=== PATIENT | female | born 1980 | race American Indian/Alaskan Native ===

== ENCOUNTER 2018-01-01 21:57 | Emergency (ER) | payer MEDICAID ==
[2018-01-01 22:03] VITALS: BMI 28.3
[2018-01-01 22:07] VITALS: TEMP 98.5
[2018-01-01] MEDS ORDERED: Sodium Chloride 0.9% 1,000 ML IV SCH (22:15)
--- NOTE | 2018-01-01 22:15 | ED PDOC ---
Arrival/HPI - General Chief Complaint: Headache Time Seen by Provider: 01/01/18 21:59 Historian: Patient - History of Present Illness Narrative History of Present Illness (Text): you were treated in the ED today for hx of Lupus and having drank alcohol and feeling gradual onset headache/migraine flare-up but otherwise without any head injury/neck pain/loss of consciousness/nausea/vomiting/dizziness/difficulty breathing/chest pain/abdomen pain/numbness/tingling/loss of limb function/pain with urination/thoughts to harm yourself or others or hallucinations. 01/01/18 22:12 Symptom Course: Improving Quality: Aching Severity Level: 1 Activities at Onset: Rest Context: Sitting Past Medical History - Provider Review Nursing Documentation Reviewed: Yes - Travel History Have you recently traveled outside [place] w/in the past 3 mons?: No - Infectious Disease Hx of Infectious Diseases: None - Cardiac Hx Hypertension: Yes - Neurological Hx Migraine: Yes - Endocrine/Metabolic Hx Systemic Lupus Erythematosus: Yes - Psychiatric Hx Substance Use: No Family/Social History - Physician Review Nursing Documentation Reviewed: Yes Family/Social History: No Known Family HX Smoking Status: Smoker Currrent Status Unknown Hx Alcohol Use: Yes Frequency of alcohol use: Socially Hx Substance Use: No Allergies/Home Meds Allergies/Adverse Reactions: Allergies No Known Allergies Allergy (Verified 01/01/18 22:03) Home Medications: Home Meds Medication Instructions Recorded Confirmed Unobtainable 01/01/18 01/01/18 Review of Systems - Physician Review All systems were reviewed & negative as marked: Yes - Review of Systems Constitutional: Normal Eyes: Normal ENT: Normal Respiratory: Normal Cardiovascular: Normal Gastrointestinal: Normal Genitourinary Female: Normal Musculoskeletal: Normal Skin: Normal Neurological: Headache Endocrine: Normal Hemo/Lymphatic: Normal Psychiatric: Normal Physical Exam Vital Signs Reviewed: Yes Vital Signs Temp Pulse Resp BP Pulse Ox 01/02/18 00:18 56 L 20 129/92 H 99 01/01/18 22:04 98.5 F 64 18 149/104 H 100 Temperature: Afebrile Blood Pressure: Hypertensive Pulse: Regular Respiratory Rate: Normal Appearance: Positive for: Well-Appearing, Non-Toxic, Comfortable Pain Distress: None Mental Status: Positive for: Alert and Oriented X 3 - Systems Exam Head: Present: Atraumatic Pupils: Present: PERRL Extroacular Muscles: Present: EOMI Conjunctiva: Present: Normal Ears: Present: Normal Mouth: Present: Moist Mucous Membranes Pharnyx: Present: Normal Nose (External): Present: Atraumatic Nose (Internal): Present: Normal Inspection Neck: Present: Normal Range of Motion, Other (no c-t-l spinal or paraspinal tenderness) Respiratory/Chest: Present: Clear to Auscultation, Good Air Exchange Cardiovascular: Present: Regular Rate and Rhythm Abdomen: No: Tenderness, Distention, Normal Bowel Sounds, Peritoneal Signs, Rebound, Guarding, McBurney's Point Tender, Rovsing's Sign Present, Hernias, Feeding Tubes, Ostomy Tubes, Mass/Organomegaly, Scars, Other Back: Present: Normal Inspection Upper Extremity: Present: Normal Inspection Lower Extremity: Present: Normal Inspection Neurological: Present: GCS=15, CN II-XII Intact, Speech Normal, Motor Func Grossly Intact Skin: Present: Warm, Normal Color Psychiatric: Present: Alert, Oriented x 3, Normal Insight, Normal Concentration Medical Decision Making ED Course and Treatment: ct head FINDINGS: Brain: No intracranial hemorrhage. No mass. No definite edema. Ventricles: No hydrocephalus. Bones/joints: No acute fracture. Soft tissues: Unremarkable. Sinuses: No acute sinusitis. Mastoid air cells: No mastoid effusion. Orbits: Unremarkable as visualized. IMPRESSION: 1. No definite acute intracranial abnormality. you were treated in the ED today for hx of Lupus and having drank alcohol and feeling gradual onset headache/migraine flare-up but otherwise without any head injury/neck pain/loss of consciousness/nausea/vomiting/dizziness/difficulty breathing/chest pain/abdomen pain/numbness/tingling/loss of limb function/pain with urination/thoughts to harm yourself or others or hallucinations. You were otherwise breathing easily, smiling and talking easily, good strength/sensation , clear lungs, no abdomen tenderness, no spinal tenderness, no fever temp 98.5, stable heart rate 64, stable breathing rate 18, excellent oxygen level 100% room air, elevated blood pressure 149/104 and repeat 129/92 which we recommend repeat in 2-3 days primary care office to determine further treatment, you have blood tests no infection count 5.8, stable blood level hemoglobin 9/platelets 234, stable chemistry, urine test no acute sign of infeciton, urine test negative, test negative less than 2.39, alcohol level 153, heart blood test less than 0.01 negative, radiology ct head No definite acute intracranial abnormality., ECG sinus bradycardia, saline, observation done in the ED with improvement, re-evaluated with good strength/sensation/alert/ oriented, walking easily, had a long discussion with you and mom and you both wanted to go home, counselled to stop drinking alcohol and thus discharged home with mom. 1. Recommend follow-up primary care 2 days to review symptoms, referral to detoxification clinic to stop drinking alcohol, referral to neurology clinic to review your symptoms to ensure further care. 2. If any worsening pain, fever, chills, nausea, vomiting, difficulty breathing, numbness , loss of limb function, pain with urination or any medical condition then return to the ED. 01/02/18 01:41 01/02/18 01:53 Reassessment Condition: Re-examined, Improved - Lab Interpretations Lab Results: 01/01/18 22:25 01/01/18 22:25 Lab Results 01/02/18 00:40: Urine Color Yellow, Urine Appearance Clear, Urine pH 7.0, Ur Specific [place] 1.010, Urine Protein Negative, Urine Glucose (UA) Negative, Urine Ketones Negative, Urine Blood Negative, Urine Nitrate Negative, Urine Bilirubin Negative, Urine Urobilinogen 0.2, Ur Leukocyte Esterase Negative 01/01/18 22:25: Troponin I < 0.01 01/01/18 22:25: Beta HCG, Quant < 2.39, Alcohol, Quantitative 153 H 01/01/18 22:25: Sodium 149 H, Potassium 3.8, Chloride 112 H, Carbon Dioxide 22, Anion Gap 19, BUN 9, Creatinine 0.6 L, Est GFR ( Amer) > 60, Est GFR (Non -Af Amer) > 60, Random Glucose 90, Calcium 8.7, Total Bilirubin < 0.1 L, AST 25 , ALT 25, Alkaline Phosphatase 35 L, Total Protein 6.9, Albumin 4.2, Globulin 2.7, Albumin/Globulin Ratio 1.6 01/01/18 22:25: PT 12.6 H, INR 1.10 H, APTT 28.4 01/01/18 22:25: WBC 5.8, RBC 4.19, Hgb 9.0 L, Hct 28.9 L, MCV 69.0 L, MCH 21.5 L , MCHC 31.1, RDW 18.7 H, Plt Count 234, MPV 10.6, Gran % 44.2 L, Lymph % (Auto) 49.5 H, [place] % (Auto) 4.8, Eos % (Auto) 1.0 L, Baso % (Auto) 0.5, Gran # 2.57, Lymph # (Auto) 2.9, [place] # (Auto) 0.3, Eos # (Auto) 0.1, Baso # (Auto) 0.03 I have reviewed the lab results: Yes - RAD Interpretation Radiology Orders: 01/01/18 23:20 HEAD W/O CONTRAST [CT] Stat Paving Machine Operator: Radiologist - EKG Interpretation Interpreted by ED Physician: Yes (sinus bradycardia, flipped t waves avr, avl, v1, v2, v3.) Type: 12 lead EKG - Medication Orders Current Medication Orders: Sodium Chloride (Sodium Chloride 0.9%) 1,000 mls @ 100 mls/hr IV .Q10H CAROLYN Last Admin: 01/01/18 22:20 Dose: 100 mls/hr eMAR Start Stop Document 01/01/18 22:20 (Rec: 01/01/18 23:00 [id number] Intravenous Solution Start Date 01/01/18 Start Time 22:20 Discontinued Medications Acetaminophen (Tylenol 325mg Tab) 975 mg PO STAT STA Stop: 01/01/18 22:31 Last Admin: 01/01/18 22:58 Dose: 975 mg MAR Pain/Vitals Document 01/01/18 22:58 (Rec: 01/01/18 23:00 [id number] Pain Reassessment Is This A Pain ReAssessment? Yes Location Pain Location Body Rubber Stamp Maker Ondansetron HCl (Zofran Inj) 4 mg IVP STAT STA Stop: 01/01/18 22:31 Last Admin: 01/01/18 23:00 Dose: 4 mg IVP Administration Document 01/01/18 23:00 (Rec: 01/01/18 23:00 [id number] Charges for Administration # of IVP Administrations 1 Disposition/Present on Arrival - Present on Arrival Any Indicators Present on Arrival: No History of DVT/PE: No History of Uncontrolled Diabetes: No Urinary Catheter: No History of Decub. Ulcer: No History Surgical Site Infection Following: None - Disposition Have Diagnosis and Disposition been Completed?: Yes Diagnosis: Alcohol abuse, Headache Disposition: HOME/ ROUTINE Disposition Time: :42 Patient Plan: Discharge Patient Problems: Current Active Problems Problem Status Onset Alcohol abuse Acute Headache Acute Condition: IMPROVED Discharge Instructions (ExitCare): Headache, Adult, Effects of Alcohol on Your Health Additional Instructions: you were treated in the ED today for hx of Lupus and having drank alcohol and feeling gradual onset headache/migraine flare-up but otherwise without any head injury/neck pain/loss of consciousness/nausea/vomiting/dizziness/difficulty breathing/chest pain/abdomen pain/numbness/tingling/loss of limb function/pain with urination/thoughts to harm yourself or others or hallucinations. You were otherwise breathing easily, smiling and talking easily, good strength/sensation , clear lungs, no abdomen tenderness, no spinal tenderness, no fever temp 98.5, stable heart rate 64, stable breathing rate 18, excellent oxygen level 100% room air, elevated blood pressure 149/104 and repeat 129/92 which we recommend repeat in 2-3 days primary care office to determine further treatment, you have blood tests no infection count 5.8, stable blood level hemoglobin 9/platelets 234, stable chemistry, urine test no acute sign of infeciton, urine test negative, test negative less than 2.39, alcohol level 153, heart blood test less than 0.01 negative, radiology ct head No definite acute intracranial abnormality., ECG sinus bradycardia, saline, observation done in the ED with improvement, re-evaluated with good strength/sensation/alert/ oriented, walking easily, had a long discussion with you and mom and you both wanted to go home, counselled to stop drinking alcohol and thus discharged home with mom. 1. Recommend follow-up primary care 2 days to review symptoms, referral to detoxification clinic to stop drinking alcohol, referral to neurology clinic to review your symptoms to ensure further care. 2. If any worsening pain, fever, chills, nausea, vomiting, difficulty breathing, numbness , loss of limb function, pain with urination or any medical condition then return to the ED. Referrals: NimbusBasejackie Rhodes, [Primary Care Provider] - Follow up with primary Forms: [employer]pto ([place])
[2018-01-01 22:37] LABS: BASO # 0.03 K/mm3 (0.0-2.0); BASO % 0.5 % (0.0-3.0); EOS # 0.1 (0.0-0.7); GRAN # 2.57 (1.4-6.5); GRAN % 44.2 % (50.0-68.0); LYMPH # 2.9 (1.2-3.4); LYMPH % 49.5 % (22.0-35.0); MEAN CORPUSCULAR HEMOGLOBIN 21.5 pg (25.0-35.0); MEAN CORPUSCULAR HGB CONC 31.1 g/dl (31.0-37.0); MEAN PLATELET VOLUME 10.6 fl (7.0-11.0); MONO # 0.3 (0.1-0.6); MONO % 4.8 % (1.0-6.0); RBC 4.19 10^6/uL (3.5-6.1); RED CELL DISTRIBUTION WIDTH 18.7 % (11.5-14.5); WHITE BLOOD COUNT 5.8 10^3/ul (4.5-11.0)
[2018-01-01 22:45] LABS: INR 1.1 (0.93-1.08); PARTIAL THROMBOPLASTIN TIME 28.4 Seconds (25.1-36.5); PROTHROMBIN TIME 12.6 SECONDS (9.4-12.5)
[2018-01-01 22:47] LABS: ALB/GLOB RATIO 1.6 (1.1-1.8); ALBUMIN 4.2 g/dL (3.0-4.8); ALT/SGPT 25 U/L (7-56); AST/SGOT 25 U/L (14-36); BLOOD UREA NITROGEN 9 mg/dL (7-21); CALCIUM 8.7 mg/dL (8.4-10.5); GFR AFRICAN-AMERICAN > 60; GFR NON-AFRICAN AMERICAN > 60
--- NOTE | 2018-01-02 00:51 | CT ---
EXAM: CT Head Without Intravenous Contrast CLINICAL HISTORY: 37 years old, female; Pain; Headache; Additional info: 37yof, lupus, headach, tingling TECHNIQUE: Axial computed tomography images of the head/brain without intravenous contrast. All CT scans at this facility use one or more dose reduction techniques, viz.: automated exposure control; ma/kV adjustment per patient size (including targeted exams where dose is matched to indication; i.e. head); or iterative reconstruction technique. Coronal and sagittal reformatted images were created and reviewed. COMPARISON: No relevant prior studies available. FINDINGS: Brain: No intracranial hemorrhage. No mass. No definite edema. Ventricles: No hydrocephalus. Bones/joints: No acute fracture. Soft tissues: Unremarkable. Sinuses: No acute sinusitis. Mastoid air cells: No mastoid effusion. Orbits: Unremarkable as visualized. IMPRESSION: 1. No definite acute intracranial abnormality.
[2018-01-02 01:17] LABS: URINE BILIRUBIN NEGATIVE (NEGATIVE); URINE BLOOD NEGATIVE (NEGATIVE); URINE GLUCOSE (UA) NEGATIVE (NEGATIVE); URINE LEUKOCYTE ESTERASE NEGATIVE Leu/uL (NEGATIVE); URINE PROTEIN NEGATIVE mg/dL (<30 mg/dL); URINE UROBILINOGEN 0.2 E.U./dL (<1 E.U./dL)
[2018-01-02 01:23] LABS: URINE APPEARANCE CLEAR (CLEAR); URINE COLOR YELLOW (YELLOW)
[2018-01-02 01:59] VITALS: BP 131/84; RESP 18; O2SAT 100
[2018-01-02 03:15] VITALS: PULSE 94
--- NOTE | 2018-01-02 08:51 | CARD ---
APPROVED REPORT EKG Measurement Heart [id number] <Conclusion> Sinus bradycardia RVCD Minimal voltage criteria for LVH, may be normal variant
== END 2018-01-02 01:58 | disposition home or self-care (01) ==
LOC: ED 21:57
DX: R51 Headache (principal); F10.10 Alcohol abuse, uncomplicated; I10 Essential (primary) hypertension; M32.9 Systemic lupus erythematosus, unspecified
CPT/HCPCS: 70450; 80053; 80320; 81003; 84484; 84702; 85025; 85610; 85730; 87086; 93005; 96374; 99285; J2405; J7040

== ENCOUNTER 2018-06-21 17:18 | Inpatient (IN) | payer MEDICAID ==
[2018-06-21 17:35] VITALS: BMI 25.0
--- NOTE | 2018-06-21 17:57 | ED PDOC ---
Arrival/HPI - General Chief Complaint: Weakness/Neurological Deficit Time Seen by Provider: 06/21/18 17:28 Historian: Patient, Parent - History of Present Illness Narrative History of Present Illness (Text): 06/21/18 17:57 Patient is a 37 year old female whose past medical history includes hypertension and lupus, who presents to the Emergency department with her mother complaining of diffuse pain, and difficulty walking. Patient reports that she was admitted to [facility] for approximately 3 days with her current symptoms and eloped earlier today. She reports feeling weak, diffusekly, and eloped to trick or treat with her children, but admits that her symptoms hadn't resolved when she left the hospital. She takes Mesalamine for her Lupus, and Lisinopril for hypertension. Patient noted currently having her menstrual period. She states being allergic to Motrin, and is unable to take Tylenol because it causes abdominal pain. Of note she is unsure if her current symptoms are similar to past lupus flare ups. Patient denies fevers, chills, cough, shortness of breath, chest pain, dyspnea on exertion, abdominal pain, nausea, vomiting, diarrhea, headache, dizziness, or any other complaint. Spoke to the mother, who reports that the patient was supposed to get further neurological testing at [facility], but the patient denied treatment and eloped. Time/Duration: < week Symptom Onset: Sudden Symptom Course: Unchanged Activities at Onset: Light Past Medical History - Provider Review Nursing Documentation Reviewed: Yes - Infectious Disease Hx of Infectious Diseases: None - Cardiac Hx Cardiac Disorders: Yes Hx Hypertension: Yes - Pulmonary Hx Respiratory Disorders: No - Neurological Hx Neurological Disorder: Yes Hx Migraine: Yes - HEENT Hx HEENT Disorder: No - Renal Hx Renal Disorder: No - Endocrine/Metabolic Hx Endocrine Disorders: Yes Hx Systemic Lupus Erythematosus: Yes - Hematological/Oncological Hx Blood Disorders: No - Integumentary Hx Dermatological Disorder: No - Musculoskeletal/Rheumatological Hx Musculoskeletal Disorders: No - Gastrointestinal Hx Gastrointestinal Disorders: No - Genitourinary/Gynecological Hx Genitourinary Disorders: No - Psychiatric Hx Psychophysiologic Disorder: No Hx Substance Use: No Family/Social History - Physician Review Nursing Documentation Reviewed: Yes Family/Social History: No Known Family HX Smoking Status: Smoker Currrent Status Unknown Hx Alcohol Use: Yes Hx Substance Use: No Allergies/Home Meds Allergies/Adverse Reactions: Allergies No Known Allergies Allergy (Verified 05/13/18 22:03) Home Medications: Home Meds Medication Instructions Recorded Confirmed Unobtainable 01/01/18 01/01/18 Review of Systems - Physician Review All systems were reviewed & negative as marked: Yes - Review of Systems Constitutional: absent: Fevers, Night Sweats Respiratory: absent: SOB, Cough Cardiovascular: absent: Chest Pain Gastrointestinal: absent: Abdominal Pain, Diarrhea, Nausea, Vomiting Musculoskeletal: Other (diffuse pain) Neurological: absent: Headache, Dizziness Physical Exam Vital Signs Reviewed: Yes Vital Signs Temp Pulse Resp BP Pulse Ox 06/21/18 17:30 98.3 F 55 L 19 143/79 100 Temperature: Afebrile Blood Pressure: Normal Pulse: Bradycardic Respiratory Rate: Normal Appearance: Positive for: Unkept Mental Status: Positive for: Alert and Oriented X 3 Finger Stick Blood Glucose: 92 - Systems Exam Head: Present: Atraumatic, Normocephalic Pupils: Present: PERRL Extroacular Muscles: Present: EOMI Conjunctiva: Present: Normal Mouth: Present: Moist Mucous Membranes Neck: Present: Normal Range of Motion. No: Meningeal Signs, MIDLINE TENDERNESS Respiratory/Chest: Present: Clear to Auscultation, Good Air Exchange. No: Respiratory Distress, Accessory Muscle Use Cardiovascular: Present: Regular Rate and Rhythm, Normal S1, S2. No: Murmurs Abdomen: No: Tenderness, Distention, Peritoneal Signs Back: Present: Normal Inspection. No: CVA Tenderness, Midline Tenderness Upper Extremity: Present: Normal Inspection, Normal ROM, NORMAL PULSES. No: Cyanosis, Edema Lower Extremity: Present: Normal Inspection, NORMAL PULSES, Neurovascularly Intact, Other (No saddle anesthesia). No: Edema, CALF TENDERNESS Neurological: Present: GCS=15, CN II-XII Intact, Speech Normal Skin: Present: Warm, Dry, Normal Color. No: Rashes Psychiatric: Present: Alert, Oriented x 3, Normal Insight, Normal Concentration Medical Decision Making ED Course and Treatment: 06/21/18 17:57 Impression: 37 year old female who is complaining of diffuse pain, generalized weakness, difficulty walking. No saddle anesthesia, enuresis or encoparesis. Pt was supposed to have spinal tap for ?weakness, but was able to ambulate and elope without weakness from . On exam, No meningeal signs and good antigravity 3/5 strength in B/L LE. Differential Diagnosis included but are not limited to: Plan: -- Head Ct without contrast -- EKG -- Labs -- Cardiac enzymes -- Blood work -- Chest X-ray -- Blood culture -- Urinalysis -- IV fluids -- Influenza test -- Reassess and disposition Prior Visits: Notes and results from previous visits were reviewed. Progress Notes: 06/21/18 20:31 +UTI. No CVAT Anemic: pt notes that she has had low blood counts around 8 in the past. No dark or bloody stool. Pt notes her period is improving, and denies any abnl vaginal d/c or rashes or vaginal pain. Pt notes that if needed she would be willing to do tap tomorrow. I endorsed to patient risk of delayed tap- However given no meningeal signs, will defer tap and have neuro see pt. I endorsed to Dr. Ortiz and healthcare or medical who will f/u and accepts admission to hospitalist service - Lab Interpretations I have reviewed the lab results: Yes - EKG Interpretation EKG Interpretation (Text): 06/21/18 18:52 EKG shows sinus bradycardia at 52 BPM with normal intervals and axis. No STEMI. Interpreted by me. Interpreted by ED Physician: Yes Type: 12 lead EKG - Scribe Statement The provider has reviewed the documentation as recorded by the Scribe Saad Langston Provider Scribe Attestation: All medical record entries made by the Scribe were at my direction and personally dictated by me. I have reviewed the chart and agree that the record accurately reflects my personal performance of the history, physical exam, medical decision making, and the department course for this patient. I have also personally directed, reviewed, and agree with the discharge instructions and disposition. Disposition/Present on Arrival - Present on Arrival Any Indicators Present on Arrival: No History of DVT/PE: No History of Uncontrolled Diabetes: No Urinary Catheter: No History of Decub. Ulcer: No History Surgical Site Infection Following: None - Disposition Have Diagnosis and Disposition been Completed?: Yes Diagnosis: UTI (urinary tract infection) Disposition: HOSPITALIZED Disposition Time: 20:37 Patient Problems: Current Active Problems Problem Status Onset UTI (urinary tract infection) Acute Condition: GOOD
[2018-06-21 18:51] LABS: BASO # 0.01 K/mm3 (0.0-2.0); BASO % 0.2 % (0.0-3.0); EOS # 0.1 (0.0-0.7); EOS % 1.1 % (1.5-5.0); GRAN # 2.08 (1.4-6.5); GRAN % 38.8 % (50.0-68.0); HEMOGLOBIN 8.3 g/dL (12.0-16.0); LYMPH % 55.4 % (22.0-35.0); MEAN CELL VOLUME 63.5 fl (80.0-105.0); MEAN CORPUSCULAR HEMOGLOBIN 18.5 pg (25.0-35.0); MEAN CORPUSCULAR HGB CONC 29.1 g/dl (31.0-37.0); MONO # 0.2 (0.1-0.6); MONO % 4.5 % (1.0-6.0); PLATELET COUNT 238 10^3/uL (120.0-450.0); RBC 4.49 10^6/uL (3.5-6.1); RED CELL DISTRIBUTION WIDTH 21.3 % (11.5-14.5); WHITE BLOOD COUNT 5.4 10^3/uL (4.5-11.0)
[2018-06-21] MEDS: Sodium Chloride 0.9% 1,000 ML IV SCH (18:55)
[2018-06-21 19:03] LABS: ALB/GLOB RATIO 1.3 (1.1-1.8); ALBUMIN 3.7 g/dL (3.0-4.8); ALT/SGPT 16 U/L (7-56); AST/SGOT 34 U/L (14-36); BLOOD UREA NITROGEN 9 mg/dL (7-21); CALCIUM 8.3 mg/dL (8.4-10.5); GFR NON-AFRICAN AMERICAN > 60
[2018-06-21 19:20] LABS: TROPONIN I < 0.01 ng/mL
[2018-06-21 19:22] LABS: B-TYPE NATRIURETIC PEPTIDE 98.8 pg/mL (0-450)
[2018-06-21 19:30] LABS: URINE BILIRUBIN NEGATIVE (NEGATIVE); URINE BLOOD LARGE (NEGATIVE); URINE GLUCOSE (UA) NEGATIVE (NEGATIVE); URINE LEUKOCYTE ESTERASE NEGATIVE Leu/uL (NEGATIVE); URINE PROTEIN 30 mg/dL (<30 mg/dL); URINE UROBILINOGEN 0.2 E.U./dL (<1 E.U./dL)
[2018-06-21 19:56] LABS: URINE APPEARANCE SL CLOUDY (CLEAR); URINE COLOR YELLOW (YELLOW)
[2018-06-21 19:58] LABS: URINE BACTERIA MANY (NEG); URINE RBC 20 - 25 /hpf (0-2)
[2018-06-21 20:13] LABS: ERYTHROCYTE SEDIMENTATION RATE 10 mm/hr (0.0-20.0)
[2018-06-21] MEDS ORDERED: Influenza Vaccine 60 mcg/0.5 mL SYR (4YR UP) IM ONE (23:21)
--- NOTE | 2018-06-22 00:17 | CP.PCM.HP ---
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 She reports that she was recently admitted to [facility] with similar complaints however left AMA after being told she would need a LP. She reports her walking is shaky, off balance, and wobbly; she's reporting leg pain, fatigue, body aches. Patient also has complaints of numbness on the bottom of her feet as well as urinary incontinence (urge). Denies any fevers chills, reports constipation last BM 1.5 weeks ago, denies hematochezia/ melena at the time. Patient reports that whenever she has a lupus flair she has nubmness, achiness, and hair loss. When asked about her lupus diagnosis patient reports she was diagnosed 2 yrs ago by her primary care doctor; Dr. Bradley; has never seen a residential care facility manager for lupus. Of note she reported to ED that she was on mesalamine for lupus and lisinopril f or hypertension; when verifying home rx w/ pharmacy she is not on either of medications. Patient also reported to ED that she is allergic to motrin and has abdominal pain w/ tylenol however she reported to nurse on the floor that she's on percocet. Denies any chest pain, shortness of breath, palpitations, abd pain, n/v/d, dizziness, blurry vision. Denies Rash. Remainder 12 system ROS is negative. 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, 4children most recent 2013, Miscarriage 2012- Home Rx As per PHARMACY: Tylenol#3 -Filled 05/21 #20 Augmentin -Filled 05/15 #10 Fioricet #50 / 12 days Tylenol#3 - Quantity 20 March - Oxy, Fioricet, Clarithromycin, Augmentin Present on Admission - Present on Admission Any Indicators Present on Admission: No Review of Systems - Review of Systems All systems: reviewed and no additional remarkable complaints except Review of Systems: as per HPI Past Patient History - Infectious Disease Hx of Infectious Diseases: None - Past Social History Smoking Status: Light Smoker < 10 Cigarettes Daily - CARDIAC Hx Hypertension: Yes - PULMONARY Hx Respiratory Disorders: No - NEUROLOGICAL Hx Migraine: Yes - HEENT Hx HEENT Problems: No - RENAL Hx Chronic Kidney Disease: No - ENDOCRINE/METABOLIC Hx Systemic Lupus Erythematosus: Yes - HEMATOLOGICAL/ONCOLOGICAL Hx Blood Disorders: No - INTEGUMENTARY Hx Dermatological Problems: No - MUSCULOSKELETAL/RHEUMATOLOGICAL Hx Musculoskeletal Disorders: No Hx Falls: No - GASTROINTESTINAL Hx Gastrointestinal Disorders: No - GENITOURINARY/GYNECOLOGICAL Hx Genitourinary Disorders: No - PSYCHIATRIC Hx Psychophysiologic Disorder: No - SURGICAL HISTORY Other/Comment: X1 Meds Allergies/Adverse Reactions: Allergies Allergy/AdvReac Type Severity Reaction Status Date / Time No Known Allergies Allergy Verified 01/01/18 22:03 Physical Exam - Constitutional Appears: Non-toxic - Head Exam Head Exam: ATRAUMATIC, NORMOCEPHALIC - Eye Exam Eye Exam: EOMI, Normal appearance, PERRL. absent: Scleral icterus - ENT Exam ENT Exam: Mucous Membranes Moist - Respiratory Exam Respiratory Exam: Clear to Auscultation Bilateral, NORMAL BREATHING PATTERN - Cardiovascular Exam Cardiovascular Exam: Bradycardia, +S1, +S2 - GI/Abdominal Exam GI & Abdominal Exam: Normal Bowel Sounds, Soft, Tenderness (RLQ/RUQ; Not apparent on distraction; no guarding; no rebound; McBurney's tenderpoint negative ) - Back Exam Back exam: absent: CVA tenderness (L), CVA tenderness (R) - Neurological Exam Neurological exam: CN II-XII Intact, Oriented x3 Additional comments: 5/5 Gross strength in UE and LE BL BL LE Sensatory exam equivocal ; - Psychiatric Exam Psychiatric exam: Normal Affect, Normal Mood - Skin Skin Exam: Dry, Intact, Warm Additional comments: No rashes noted on abdomen, back, and face Results - Vital Signs Recent Vital Signs: Last Vital Signs Temp 98 F 06/21/18 22:50 Pulse 59 L 06/21/18 22:50 Resp 18 06/21/18 23:04 BP 124/76 06/21/18 22:50 Pulse Ox 100 06/21/18 22:50 - Labs Result Diagrams: 06/21/18 18:15 06/21/18 18:15 Labs: Laboratory Results - last 24 hr 06/21/18 06/21/18 06/21/18 18:15 18:15 18:15 WBC 5.4 RBC 4.49 Hgb 8.3 L Hct 28.5 L MCV 63.5 L D MCH 18.5 L MCHC 29.1 L RDW 21.3 H Plt Count 238 Gran % 38.8 L Lymph % (Auto) 55.4 H [place] % (Auto) 4.5 Eos % (Auto) 1.1 L Baso % (Auto) 0.2 Gran # 2.08 Lymph # (Auto) 3.0 [place] # (Auto) 0.2 Eos # (Auto) 0.1 Baso # (Auto) 0.01 ESR 10 Sodium 141 Potassium 3.3 L Chloride 110 H Carbon Dioxide 24 Anion Gap 10 BUN 9 Creatinine 0.6 L Est GFR ( Amer) > 60 Est GFR (Non-Af Amer) > 60 Random Glucose 96 Calcium 8.3 L Total Bilirubin < 0.1 L AST 34 ALT 16 Alkaline Phosphatase 44 Total Creatine Kinase 32 L Troponin I < 0.01 NT-Pro-B Natriuret Pep 98.8 Total Protein 6.6 Albumin 3.7 Globulin 2.9 Albumin/Globulin Ratio 1.3 TSH 3rd Generation Urine Color Urine Appearance Urine pH Ur Specific [place] Urine Protein Urine Glucose (UA) Urine Ketones Urine Blood Urine Nitrate Urine Bilirubin Urine Urobilinogen Ur Leukocyte Esterase Urine RBC Urine WBC Ur Epithelial Cells Urine Bacteria Influenza Typ A,B (EIA) Negative for flu a/b 06/21/18 06/21/18 18:15 19:23 WBC RBC Hgb Hct MCV MCH MCHC RDW Plt Count Gran % Lymph % (Auto) [place] % (Auto) Eos % (Auto) Baso % (Auto) Gran # Lymph # (Auto) [place] # (Auto) Eos # (Auto) Baso # (Auto) ESR Sodium Potassium Chloride Carbon Dioxide Anion Gap BUN Creatinine Est GFR ( Amer) Est GFR (Non-Af Amer) Random Glucose Calcium Total Bilirubin AST ALT Alkaline Phosphatase Total Creatine Kinase Troponin I NT-Pro-B Natriuret Pep Total Protein Albumin Globulin Albumin/Globulin Ratio TSH 3rd Generation 1.21 Urine Color Yellow Urine Appearance Sl cloudy Urine pH 6.0 Ur Specific [place] >= 1.030 Urine Protein 30 H Urine Glucose (UA) Negative Urine Ketones Negative Urine Blood Large H Urine Nitrate Negative Urine Bilirubin Negative Urine Urobilinogen 0.2 Ur Leukocyte Esterase Negative Urine RBC 20 - 25 Urine WBC 10 - 15 Ur Epithelial Cells 4 - 5 Urine Bacteria Many Influenza Typ A,B (EIA) Assessment & Plan - Assessment and Plan (Free Text) Assessment: 37F w/ a PMH of HTN, Migraine, Questionable History of Lupus, Presented to [facility] on 06/21 w/ c/o generalized pain, weakness, and walking issues. Plan: Generalized Weakness: Lupus flare vs anemia vs stroke vs multiple sclerosis? Follow up with PMD regarding lupus hx before initiating lupus workup; Follow up with [facility] regarding previous admission ESR wnl less likely suspecting flare Patient is not on any of the medications she reports she is on ; CTA Head negative; diffuse calcifications of falx cerebri discussed w/ radiologist - findings are benign and lead to neurologic sequelae Anemia workup pending Tylenol for pain management Neurology consulted, appreciate reccs PT Eval in AM Anemia - Microcytic: Hb 8.3 // MCV 63.5 Iron, TIBC, Ferritin pending B12 Folate pending Retic Count pending Hypokalemia 3.3 on adm Will give Kdur 40 and reassess in AM Hypocalcemia 8.3 on adm Will give calcium acetate; reassess in AM UTI Bacteruria + Pyuria Rocephin 1gm QD Pt. seen examined discussed w/ attending Dr. 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 - Date & Time Date: 06/22/18 Time: 03:03 <Sekou Ortiz - Last Filed: 06/22/18 04:48> Results - Vital Signs Recent Vital Signs: Last Vital Signs Temp 98 F 06/21/18 22:50 Pulse 59 L 06/21/18 22:50 Resp 18 06/21/18 23:04 BP 124/76 06/21/18 22:50 Pulse Ox 100 06/21/18 22:50 - Labs Result Diagrams: 06/21/18 18:15 06/21/18 18:15 Labs: Laboratory Results - last 24 hr 06/21/18 06/21/18 06/21/18 18:15 18:15 18:15 WBC 5.4 RBC 4.49 Hgb 8.3 L Hct 28.5 L MCV 63.5 L D MCH 18.5 L MCHC 29.1 L RDW 21.3 H Plt Count 238 Gran % 38.8 L Lymph % (Auto) 55.4 H [place] % (Auto) 4.5 Eos % (Auto) 1.1 L Baso % (Auto) 0.2 Gran # 2.08 Lymph # (Auto) 3.0 [place] # (Auto) 0.2 Eos # (Auto) 0.1 Baso # (Auto) 0.01 ESR 10 Sodium 141 Potassium 3.3 L Chloride 110 H Carbon Dioxide 24 Anion Gap 10 BUN 9 Creatinine 0.6 L Est GFR ( Amer) > 60 Est GFR (Non-Af Amer) > 60 Random Glucose 96 Calcium 8.3 L Total Bilirubin < 0.1 L AST 34 ALT 16 Alkaline Phosphatase 44 Total Creatine Kinase 32 L Troponin I < 0.01 NT-Pro-B Natriuret Pep 98.8 Total Protein 6.6 Albumin 3.7 Globulin 2.9 Albumin/Globulin Ratio 1.3 TSH 3rd Generation Urine Color Urine Appearance Urine pH Ur Specific [place] Urine Protein Urine Glucose (UA) Urine Ketones Urine Blood Urine Nitrate Urine Bilirubin Urine Urobilinogen Ur Leukocyte Esterase Urine RBC Urine WBC Ur Epithelial Cells Urine Bacteria Influenza Typ A,B (EIA) Negative for flu a/b 06/21/18 06/21/18 18:15 19:23 WBC RBC Hgb Hct MCV MCH MCHC RDW Plt Count Gran % Lymph % (Auto) [place] % (Auto) Eos % (Auto) Baso % (Auto) Gran # Lymph # (Auto) [place] # (Auto) Eos # (Auto) Baso # (Auto) ESR Sodium Potassium Chloride Carbon Dioxide Anion Gap BUN Creatinine Est GFR ( Amer) Est GFR (Non-Af Amer) Random Glucose Calcium Total Bilirubin AST ALT Alkaline Phosphatase Total Creatine Kinase Troponin I NT-Pro-B Natriuret Pep Total Protein Albumin Globulin Albumin/Globulin Ratio TSH 3rd Generation 1.21 Urine Color Yellow Urine Appearance Sl cloudy Urine pH 6.0 Ur Specific [place] >= 1.030 Urine Protein 30 H Urine Glucose (UA) Negative Urine Ketones Negative Urine Blood Large H Urine Nitrate Negative Urine Bilirubin Negative Urine Urobilinogen 0.2 Ur Leukocyte Esterase Negative Urine RBC 20 - 25 Urine WBC 10 - 15 Ur Epithelial Cells 4 - 5 Urine Bacteria Many Influenza Typ A,B (EIA) Attending/Attestation - Attestation I have personally seen and examined this patient.: Yes I have fully participated in the care of the patient.: Yes I have reviewed all pertinent clinical information: Yes Notes (Text): 06/22/18 04:48 Patient was seen when she was in 563-02. Medical record was reviewed. Agree with history, physical examination, assessment and plan.
[2018-06-22] MEDS ORDERED: Potassium Chloride 20 mEq ER Tab PO STA ×2 (02:53→08:24)
[2018-06-22 06:52] LABS: BASO # 0.01 K/mm3 (0.0-2.0); BASO % 0.2 % (0.0-3.0); EOS # 0.1 (0.0-0.7); EOS % 1.8 % (1.5-5.0); GRAN # 2.13 (1.4-6.5); GRAN % 38.4 % (50.0-68.0); HEMOGLOBIN 7.8 g/dL (12.0-16.0); IRON 20 ug/dL (45-180); LYMPH # 3.1 (1.2-3.4); LYMPH % 55.6 % (22.0-35.0); MEAN CELL VOLUME 63.7 fl (80.0-105.0); MEAN CORPUSCULAR HEMOGLOBIN 18.5 pg (25.0-35.0); MEAN CORPUSCULAR HGB CONC 29.1 g/dl (31.0-37.0); MONO # 0.2 (0.1-0.6); PLATELET COUNT 203 10^3/uL (120.0-450.0); RBC 4.21 10^6/uL (3.5-6.1); RED CELL DISTRIBUTION WIDTH 21.2 % (11.5-14.5); WHITE BLOOD COUNT 5.5 10^3/uL (4.5-11.0)
--- NOTE | 2018-06-22 06:52 | CARD ---
APPROVED REPORT Date of service: 06/21/2018 EKG Measurement Heart [id number] <Conclusion> Sinus bradycardia Otherwise normal ECG
[2018-06-22 07:01] LABS: % IRON SATURATION 6 % (20-55); TOTAL IRON BINDING CAPACITY 350 ug/dL (265-497)
--- NOTE | 2018-06-22 07:03 | RAD ---
Date of service: 06/21/2018 HISTORY: weakness COMPARISON: No prior. FINDINGS: LUNGS: No active pulmonary disease. PLEURA: No significant pleural effusion identified, no pneumothorax apparent. CARDIOVASCULAR: No aortic atherosclerotic calcification present. Normal cardiac size. No pulmonary vascular congestion. OSSEOUS STRUCTURES: No significant abnormalities. VISUALIZED UPPER ABDOMEN: Normal. OTHER FINDINGS: None. IMPRESSION: No active disease.
[2018-06-22 07:11] LABS: ALB/GLOB RATIO 1.2 (1.1-1.8); ALBUMIN 3.2 g/dL (3.0-4.8); ALT/SGPT 21 U/L (7-56); AST/SGOT 16 U/L (14-36); BLOOD UREA NITROGEN 7 mg/dL (7-21); GFR NON-AFRICAN AMERICAN > 60
--- NOTE | 2018-06-22 08:16 | CT ---
Date of service: 06/21/2018 PROCEDURE: CT HEAD WITHOUT CONTRAST. HISTORY: weakness COMPARISON: None available. TECHNIQUE: Axial computed tomography images were obtained through the head/brain without intravenous contrast. Radiation dose: Total exam DLP = 879.1 mGy-cm. This CT exam was performed using one or more of the following dose reduction techniques: Automated exposure control, adjustment of the mA and/or kV according to patient size, and/or use of iterative reconstruction technique. FINDINGS: HEMORRHAGE: No intracranial hemorrhage. BRAIN: No mass effect or edema. No atrophy or chronic microvascular ischemic changes. VENTRICLES: Unremarkable. No hydrocephalus. CALVARIUM: Unremarkable. PARANASAL SINUSES: Unremarkable as visualized. No significant inflammatory changes. MASTOID AIR CELLS: Unremarkable as visualized. No inflammatory changes. OTHER FINDINGS: The report concurs with the preliminary [facility] report IMPRESSION: Negative study
[2018-06-22] MEDS ORDERED: Potassium Chloride 20 mEq ER Tab PO ONE (10:30)
[2018-06-22] MEDS: cefTRIAXone 1 gm 1 GM/100 ML BAG IVPB SCH (10:33)
[2018-06-22] MEDS ORDERED: Alum-Mag Hydrox-Simethicone Susp (30 mL) PO PRN (11:42)
[2018-06-22] MEDS ORDERED: Albuterol-Ipratrop 3 mg / 0.5 (3 ml) UD IH PRN (11:43)
[2018-06-22] MEDS ORDERED: Albuterol-Ipratrop 3 mg / 0.5 (3 ml) UD IH SCH (14:00)
[2018-06-22] MEDS ORDERED: Acyclovir 500 MG in Sodium Chloride 0.9% 100 ML IV SCH (14:00)
--- NOTE | 2018-06-22 14:10 | CP.PCM.CON ---
History of Present Illness - History of Present Illness History of Present Illness: Neurology Consultation Note: Ms. Holbrook is a 37-year-old woman with a past medical history of SLE, who states that for the last two days she has been feeling generalized weakness and pain throughout her body and joints. She presented to the ED for difficulty with ambulation as well and back pain. She states that she has right leg pain, numbness, and joint/muscle pain that limits her motion. This has been progressive over the last week. A CT scan of the head was done and was normal. Review of Systems - Constitutional Constitutional: As Per HPI - EENT Eyes: absent: As Per HPI, Blind Spots, Blurred Vision, Change in Vision, Decreased Night Vision, Diplopia, Discharge, Dry Eye, Exophthalmos, Floaters, Irritation, Itchy Eyes, Loss of Peripheral Vision, Pain, Photophobia, Requires Corrective Lenses, Sees Flashes, Spots in Vision, Tunnel Vision, Other Visual Disturbances, Loss of Vision, Other Ears: absent: As Per HPI, Decreased Hearing, Ear Discharge, Ear Pain, Tinnitus, Abnormal Hearing, Disequilibrium, Dizziness, Other Nose/Mouth/Throat: absent: As Per HPI, Epistaxis, Nasal Congestion, Nasal Discharge, Nasal Obstruction, Nasal Trauma, Nose Pain, Post Nasal Drip, Sinus Pain, Sinus Pressure, Bleeding Gums, Change in Voice, Dental Pain, Dry Mouth, Dysphagia, Halitosis, Hoarsness, Lip Swelling, Mouth Lesions, Mouth Pain, Odynophagia, Sore Throat, Throat Swelling, Tongue Swelling, Facial Pain, Neck Pain, Neck Mass, Other - Breasts Breasts: absent: As Per HPI, Change in Shape, Mass, Pain, Nipple Discharge, Nipple Inversion, Skin Changes, Swelling, Other - Cardiovascular Cardiovascular: absent: As Per HPI, Acrocyanosis, Chest Pain, Chest Pain at Rest, Chest Pain with Activity, Claudication, Diaphoresis, Dyspnea, Dyspnea on Exertion, Edema, Irregular Heart Rhythm, Pain Radiating to Arm/Neck/Jaw, Leg Edema, Leg Ulcers, Lightheadedness, Orthopnea, Palpitations, Paroxysmal Noct urnal Dyspnea, Pedal Edema, Radiating Pain, Rapid Heart Rate, Slow Heart Rate, Syncope, Other - Respiratory Respiratory: absent: As Per HPI, Cough, Dyspnea, Hemoptysis, Dyspnea on Exertion, Wheezing, Snoring, Stridor, Pain on Inspiration, Chest Congestion, Excessive Mucous Production, Change in Mucous Color, Pain with Coughing, Other - Gastrointestinal Gastrointestinal: absent: As Per HPI, Abdominal Pain, Belching, Bloating, Change in Bowel Habits, Change in Stool Character, Coffee Ground Emesis, Constipation, Cramping, Diarrhea, Dyspepsia, Dysphagia, Early Satiety, Excessive Flatus, Fecal Incontinence, Heartburn, Hematemesis, Hematochezia, Loose Stools, Melena, Nausea, Odynophagia, Temesmus, Vomiting, Other - Genitourinary Genitourinary: Urinary Urgency, Freq UTI - Musculoskeletal Musculoskeletal: As Per HPI - Integumentary Integumentary: absent: As Per HPI, Acne, Alopecia, Bleeding Lesions, Change in Hair, Change in Nails, Change in Pigmentation, Changing Lesions, Dry Skin, Erythema, Furuncle, Hirsutism, Lesions, New Lesions, Non-Healing Lesions, Photosensitivity, Pruritus, Rash, Skin Pain, Skin Ulcer, Sores, Striae, Swelling, Unusual Bruising, Wounds, Jaundice, Other - Neurological Neurological: As Per HPI - Psychiatric Psychiatric: absent: As Per HPI, Abnormal Sleep Pattern, Anhedonia, Anxiety, Auditory Hallucinations, Behavioral Changes, Change in Appetite, Change in Libido, Confusion, Depression, Difficulty Concentrating, Hallucinations, Homicidal Ideation, Hopelessness, Irritability, Memory Loss, Mood Swings, Panic Attacks, Paranoia, Suicidal Ideation, Visual Hallucinations, Tactile Hallucinat ions, Other - Endocrine Endocrine: absent: As Per HPI, Change in Body Appearance, Change in Libido, Cold Intolorance, Deepening of Voice, Excessive Sweating, Fatigue, Flushing, Heat Intolorance, Increase in Ring/Shoe/Hat Size, Palpitations, Polydipsia, Polyphag ia, Polyuria, Other Past Patient History - Infectious Disease Hx of Infectious Diseases: None - Past Social History Smoking Status: Light Smoker < 10 Cigarettes Daily - CARDIAC Hx Hypertension: Yes - PULMONARY Hx Respiratory Disorders: No - NEUROLOGICAL Hx Migraine: Yes - HEENT Hx HEENT Problems: No - RENAL Hx Chronic Kidney Disease: No - ENDOCRINE/METABOLIC Hx Systemic Lupus Erythematosus: Yes - HEMATOLOGICAL/ONCOLOGICAL Hx Blood Disorders: No - INTEGUMENTARY Hx Dermatological Problems: No - MUSCULOSKELETAL/RHEUMATOLOGICAL Hx Musculoskeletal Disorders: No Hx Falls: No - GASTROINTESTINAL Hx Gastrointestinal Disorders: No - GENITOURINARY/GYNECOLOGICAL Hx Genitourinary Disorders: No - PSYCHIATRIC Hx Psychophysiologic Disorder: No - SURGICAL HISTORY Other/Comment: X1 Meds Allergies/Adverse Reactions: Allergies Allergy/AdvReac Type Severity Reaction Status Date / Time No Known Allergies Allergy Verified 01/01/18 22:03 - Medications Medications: Current Medications Acetaminophen (Tylenol 325mg Tab) 650 mg PO Q6H [facility] Last Admin: 06/22/18 06:23 Dose: Not Given Sodium Chloride (Sodium Chloride 0.9%) 1,000 mls @ 100 mls/hr IV .Q10H [facility] Last Admin: 06/21/18 18:55 Dose: 100 mls/hr Ceftriaxone Sodium (Rocephin 1 Gram Ivpb) 1 gm in 100 mls @ 100 mls/hr IVPB DAILY [facility]; Protocol Last Admin: 06/22/18 10:33 Dose: 100 mls/hr Iron Sucrose 200 mg/ Sodium (Chloride) 110 mls @ 110 mls/hr IVPB DAILY [facility] Stop: 06/23/18 10:59 Last Admin: 06/22/18 10:33 Dose: 110 mls/hr Physical Exam - Constitutional Appears: Well - Head Exam Head Exam: ATRAUMATIC, NORMAL INSPECTION, NORMOCEPHALIC - Eye Exam Eye Exam: EOMI, Normal appearance, PERRL Pupil Exam: NORMAL ACCOMODATION, PERRL - ENT Exam ENT Exam: Mucous Membranes Moist, Normal Exam - Neck Exam Neck exam: Positive for: Normal Inspection - Respiratory Exam Respiratory Exam: Clear to Auscultation Bilateral, NORMAL BREATHING PATTERN - Cardiovascular Exam Cardiovascular Exam: REGULAR RHYTHM - GI/Abdominal Exam GI & Abdominal Exam: Normal Bowel Sounds, Soft. absent: Tenderness - Rectal Exam Rectal Exam: Deferred - Extremities Exam Extremities exam: Positive for: joint swelling, tenderness - Neurological Exam Neurological exam: Abnormal Gait, Alert, CN II-XII Intact, Oriented x3, Reflexes Normal Additional comments: decreased sensation over LLE as compared with the right. On motor exam, she had 3/5 strength of the LLE as compared with the RLE. However, she also had generalized 4/5 strength due to pain/tenderness. - Psychiatric Exam Psychiatric exam: Normal Affect, Normal Mood - Skin Skin Exam: Dry, Intact, Normal Color, Warm Results - Vital Signs Recent Vital Signs: Last Vital Signs Temp 98 F 06/21/18 22:50 Pulse 59 L 06/21/18 22:50 Resp 18 06/21/18 23:04 BP 124/76 06/21/18 22:50 Pulse Ox 100 06/21/18 22:50 - Labs Result Diagrams: 06/22/18 06:15 06/22/18 06:15 Labs: Laboratory Results - last 24 hr 06/21/18 06/21/18 06/21/18 17:32 18:15 18:15 WBC 5.4 RBC 4.49 Hgb 8.3 L Hct 28.5 L MCV 63.5 L D MCH 18.5 L MCHC 29.1 L RDW 21.3 H Plt Count 238 MPV Gran % 38.8 L Lymph % (Auto) 55.4 H [place] % (Auto) 4.5 Eos % (Auto) 1.1 L Baso % (Auto) 0.2 Gran # 2.08 Lymph # (Auto) 3.0 [place] # (Auto) 0.2 Eos # (Auto) 0.1 Baso # (Auto) 0.01 Differential Comment ESR 10 Retic Count Sodium 141 Potassium 3.3 L Chloride 110 H Carbon Dioxide 24 Anion Gap 10 BUN 9 Creatinine 0.6 L Est GFR ( Amer) > 60 Est GFR (Non-Af Amer) > 60 POC Glucose (mg/dL) 92 Random Glucose 96 Uric Acid Calcium 8.3 L Phosphorus Magnesium Iron TIBC % Saturation Total Bilirubin < 0.1 L AST 34 ALT 16 Alkaline Phosphatase 44 Total Creatine Kinase 32 L Troponin I < 0.01 NT-Pro-B Natriuret Pep 98.8 Total Protein 6.6 Albumin 3.7 Globulin 2.9 Albumin/Globulin Ratio 1.3 TSH 3rd Generation Urine Color Urine Appearance Urine pH Ur Specific [place] Urine Protein Urine Glucose (UA) Urine Ketones Urine Blood Urine Nitrate Urine Bilirubin Urine Urobilinogen Ur Leukocyte Esterase Urine RBC Urine WBC Ur Epithelial Cells Urine Bacteria Influenza Typ A,B (EIA) Blood Type Antibody Screen Crossmatch BBK History Checked 06/21/18 06/21/18 06/21/18 18:15 18:15 19:23 WBC RBC Hgb Hct MCV MCH MCHC RDW Plt Count MPV Gran % Lymph % (Auto) [place] % (Auto) Eos % (Auto) Baso % (Auto) Gran # Lymph # (Auto) [place] # (Auto) Eos # (Auto) Baso # (Auto) Differential Comment ESR Retic Count Sodium Potassium Chloride Carbon Dioxide Anion Gap BUN Creatinine Est GFR ( Amer) Est GFR (Non-Af Amer) POC Glucose (mg/dL) Random Glucose Uric Acid Calcium Phosphorus Magnesium Iron TIBC % Saturation Total Bilirubin AST ALT Alkaline Phosphatase Total Creatine Kinase Troponin I NT-Pro-B Natriuret Pep Total Protein Albumin Globulin Albumin/Globulin Ratio TSH 3rd Generation 1.21 Urine Color Yellow Urine Appearance Sl cloudy Urine pH 6.0 Ur Specific [place] >= 1.030 Urine Protein 30 H Urine Glucose (UA) Negative Urine Ketones Negative Urine Blood Large H Urine Nitrate Negative Urine Bilirubin Negative Urine Urobilinogen 0.2 Ur Leukocyte Esterase Negative Urine RBC 20 - 25 Urine WBC 10 - 15 Ur Epithelial Cells 4 - 5 Urine Bacteria Many Influenza Typ A,B (EIA) Negative for flu a/b Blood Type Antibody Screen Crossmatch BBK History Checked 06/22/18 06/22/18 06/22/18 06:15 06:15 06:15 WBC 5.5 RBC 4.21 Hgb 7.8 L Hct 26.8 L MCV 63.7 L MCH 18.5 L MCHC 29.1 L RDW 21.2 H Plt Count 203 MPV Gran % 38.4 L Lymph % (Auto) 55.6 H [place] % (Auto) 4.0 Eos % (Auto) 1.8 Baso % (Auto) 0.2 Gran # 2.13 Lymph # (Auto) 3.1 [place] # (Auto) 0.2 Eos # (Auto) 0.1 Baso # (Auto) 0.01 Differential Comment ESR Retic Count 0.23 L Sodium 141 Potassium 3.3 L Chloride 111 H Carbon Dioxide 25 Anion Gap 8 L BUN 7 Creatinine 0.6 L Est GFR ( Amer) > 60 Est GFR (Non-Af Amer) > 60 POC Glucose (mg/dL) Random Glucose 88 Uric Acid Calcium 8.0 L Phosphorus 4.7 H Magnesium 2.1 Iron 20 L TIBC 350 % Saturation 6 L Total Bilirubin < 0.1 L AST 16 ALT 21 Alkaline Phosphatase 33 L D Total Creatine Kinase Troponin I NT-Pro-B Natriuret Pep Total Protein 5.9 Albumin 3.2 Globulin 2.7 Albumin/Globulin Ratio 1.2 TSH 3rd Generation Urine Color Urine Appearance Urine pH Ur Specific [place] Urine Protein Urine Glucose (UA) Urine Ketones Urine Blood Urine Nitrate Urine Bilirubin Urine Urobilinogen Ur Leukocyte Esterase Urine RBC Urine WBC Ur Epithelial Cells Urine Bacteria Influenza Typ A,B (EIA) Blood Type Antibody Screen Crossmatch BBK History Checked 06/22/18 06/22/18 06/22/18 06:30 09:30 12:20 WBC RBC Hgb Hct MCV MCH MCHC RDW Plt Count MPV Gran % Lymph % (Auto) [place] % (Auto) Eos % (Auto) Baso % (Auto) Gran # Lymph # (Auto) [place] # (Auto) Eos # (Auto) Baso # (Auto) Differential Comment See pathology report ESR Retic Count Sodium Potassium Chloride Carbon Dioxide Anion Gap BUN Creatinine Est GFR ( Amer) Est GFR (Non-Af Amer) POC Glucose (mg/dL) Random Glucose Uric Acid 2.6 Calcium Phosphorus Magnesium Iron TIBC % Saturation Total Bilirubin AST ALT Alkaline Phosphatase Total Creatine Kinase 27 L Troponin I NT-Pro-B Natriuret Pep Total Protein Albumin Globulin Albumin/Globulin Ratio TSH 3rd Generation Urine Color Urine Appearance Urine pH Ur Specific [place] Urine Protein Urine Glucose (UA) Urine Ketones Urine Blood Urine Nitrate Urine Bilirubin Urine Urobilinogen Ur Leukocyte Esterase Urine RBC Urine WBC Ur Epithelial Cells Urine Bacteria Influenza Typ A,B (EIA) Blood Type Antibody Screen Crossmatch BBK History Checked 06/22/18 12:20 WBC RBC Hgb Hct MCV MCH MCHC RDW Plt Count MPV Gran % Lymph % (Auto) [place] % (Auto) Eos % (Auto) Baso % (Auto) Gran # Lymph # (Auto) [place] # (Auto) Eos # (Auto) Baso # (Auto) Differential Comment ESR Retic Count Sodium Potassium Chloride Carbon Dioxide Anion Gap BUN Creatinine Est GFR ( Amer) Est GFR (Non-Af Amer) POC Glucose (mg/dL) Random Glucose Uric Acid Calcium Phosphorus Magnesium Iron TIBC % Saturation Total Bilirubin AST ALT Alkaline Phosphatase Total Creatine Kinase Troponin I NT-Pro-B Natriuret Pep Total Protein Albumin Globulin Albumin/Globulin Ratio TSH 3rd Generation Urine Color Urine Appearance Urine pH Ur Specific [place] Urine Protein Urine Glucose (UA) Urine Ketones Urine Blood Urine Nitrate Urine Bilirubin Urine Urobilinogen Ur Leukocyte Esterase Urine RBC Urine WBC Ur Epithelial Cells Urine Bacteria Influenza Typ A,B (EIA) Blood Type O POSITIVE Antibody Screen Negative Crossmatch See Detail BBK History Checked No verified bt Assessment & Plan (1) Generalized muscle weakness Assessment and Plan: She does have some asymmetry to her weakness that is worse on the right lower extremity and she also complains of numbness. I recommend obtaining an MRI of the lumbar spine for further evaluation. I do not believe that she has AIDP or GBS since her reflexes are actually quite normal. The UTI may also be compounding her symptoms. Continue treatment by primary team. Thank you for the consultation. Status: Acute
[2018-06-22 16:19] LABS: FOLATE 6.7 ng/mL
[2018-06-22] MEDS ORDERED: guaiFENesin 600 mg ER Tab PO SCH (18:00)
[2018-06-22] MEDS ORDERED: Apap-Butalbital-Caffeine 325-50-40mg Tab PO ONE (21:54)
[2018-06-22 23:25] VITALS: O2SAT 100
[2018-06-23 04:12] LABS: MCV 64.4 fL (80.0-100.0)
[2018-06-23] MEDS: Sodium Chloride 0.9% 1,000 ML IV SCH (05:42)
--- NOTE | 2018-06-23 06:43 | CP.PCM.PN ---
<Nabil Chavarria - Last Filed: 06/23/18 13:37> Subjective - Date & Time of Evaluation Date of Evaluation: 06/23/18 Time of Evaluation: 09:00 - Subjective Subjective: Nabil Chavarria- Internal Medicine Resident- Progress Note on Behalf of Neurology Team Subjective: Patient seen and examined at bedside. No acute overnight events. States generalized pain and weakness has improved relative to baseline. Admits to new onset right sided neck numbness which radiates down to the distal fingers of the right hand. States the numbness began after eating breakfast. Denies trauma to the region. Patient denies associated loss of consciousness, confusion, palpitations, auditory/visual changes from baseline, and focal deficits. Further denies fever, chills, chest pain, shortness of breath, diarrhea, constipation, and urinary symptoms. 12 point ROS negative except as indicated in HPI Physical Examination: - Constitutional Appears: Well, Non-toxic, No Acute Distress - Head Exam Head Exam: ATRAUMATIC - Eye Exam Eye Exam: EOMI, Normal appearance, PERRL. absent: Scleral icterus - ENT Exam ENT Exam: Mucous Membranes Moist - Neck Exam Additional comments: normal inspection - Respiratory Exam Respiratory Exam: Clear to Auscultation Bilateral, NORMAL BREATHING PATTERN - Cardiovascular Exam Cardiovascular Exam: RRR, +S1, +S2. absent: Systolic Murmur - GI/Abdominal Exam GI & Abdominal Exam: Normal Bowel Sounds, Soft. absent: Tenderness - Back Exam Back exam: absent: CVA tenderness (L), CVA tenderness (R), paraspinal tenderness, tenderness, vertebral tenderness - Neurological Exam Neurological exam: awake, alert, orientated x 3, responds to verbal stimuli, answers questions appropriately, follows commands, moves extremities past midline, ambulates with overt difficultly, muscle strength 4/5 right upper extremity, 5/5 left upper extremity, 4/5 of the left lower extremity, 5/5 right lower extremity, sensation is intact to touch throughout, CNII-CNXII intact bilaterally, 2 of 16 fibromyalagia tender points positive - Psychiatric Exam Psychiatric exam: Normal Affect, Normal Mood - Skin Skin Exam: Dry, Intact, Normal Color, Warm Assessment and Plan: Patient is a 37 year old female with past medical history of HTN, migraine, and lupus who was admitted for generalized pain, weakness, and gait instability. Generalized Muscle Weakness - Weakness likely secondary to anemia vs UTI - 06/21/2018 CT Head without Contrast- negative study - MRI of the lumbar spine ordered and pending- L1 L2 IVD herniation, L2 L3 IVD herniation, L4-L5 IVD herniation - Continue treatment by primary team Right Sided Neck and Right Upper Extremity Numbness - flexeril given via primary team - symptoms have significantly improved - no further neurological recommendations Patient seen, case discussed with, and plan approved by attending physician, Dr. Maldonado. Objective - Vital Signs/Intake and Output Vital Signs (last 24 hours): Temp Pulse Resp BP Pulse Ox 98.1 F 65 18 124/82 100 06/22/18 23:24 06/22/18 23:24 06/22/18 23:24 06/22/18 23:24 06/22/18 23:24 Intake and Output: 06/22/18 06/23/18 18:59 06:59 Intake Total 325 Balance 325 - Medications Medications: Current Medications Acetaminophen (Tylenol 325mg Tab) 650 mg PO Q6H [facility] Last Admin: 06/23/18 05:44 Dose: Not Given Sodium Chloride (Sodium Chloride 0.9%) 1,000 mls @ 100 mls/hr IV .Q10H [facility] Last Admin: 06/23/18 05:42 Dose: 100 mls/hr Ceftriaxone Sodium (Rocephin 1 Gram Ivpb) 1 gm in 100 mls @ 100 mls/hr IVPB DAILY [facility]; Protocol Last Admin: 06/22/18 10:33 Dose: 100 mls/hr Iron Sucrose 200 mg/ Sodium (Chloride) 110 mls @ 110 mls/hr IVPB DAILY [facility] Stop: 06/23/18 10:59 Last Admin: 06/22/18 10:33 Dose: 110 mls/hr Ibuprofen (Motrin Tab) 600 mg PO Q6H PRN PRN Reason: Pain, moderate (4-7) Last Admin: 06/22/18 15:38 Dose: 600 mg - Labs Labs: 06/22/18 06:15 06/22/18 06:15 <Nitin Maldonado - Last Filed: 06/23/18 18:10> Objective - Vital Signs/Intake and Output Vital Signs (last 24 hours): Temp Pulse Resp BP Pulse Ox 97.8 F 59 L 20 121/74 100 06/23/18 08:32 06/23/18 08:32 06/23/18 08:32 06/23/18 08:32 06/23/18 08:32 Intake and Output: 06/23/18 06/23/18 06:59 18:59 Intake Total 2400 Balance 2400 - Medications Medications: Current Medications Acetaminophen (Tylenol 325mg Tab) 650 mg PO Q6H [facility] Last Admin: 06/23/18 12:15 Dose: 650 mg Sodium Chloride (Sodium Chloride 0.9%) 1,000 mls @ 100 mls/hr IV .Q10H [facility] Last Admin: 06/23/18 05:42 Dose: 100 mls/hr Ceftriaxone Sodium (Rocephin 1 Gram Ivpb) 1 gm in 100 mls @ 100 mls/hr IVPB DAILY [facility]; Protocol Last Admin: 06/23/18 09:16 Dose: 100 mls/hr Ibuprofen (Motrin Tab) 600 mg PO Q6H PRN PRN Reason: Pain, moderate (4-7) Last Admin: 06/22/18 15:38 Dose: 600 mg - Labs Labs: 06/23/18 06:20 06/23/18 06:20 Assessment and Plan (1) Generalized muscle weakness Status: Acute Attending/Attestation - Attestation I have personally seen and examined this patient.: Yes I have fully participated in the care of the patient.: Yes I have reviewed all pertinent clinical information, including history, physical exam and plan: Yes Notes (Text): 06/23/18 18:09 I agree with the assessment and plan. Symptoms do not appear to be neurologic in nature. Continue current management.
[2018-06-23 07:12] LABS: BASO # 0.01 K/mm3 (0.0-2.0); BASO % 0.2 % (0.0-3.0); EOS # 0.1 (0.0-0.7); EOS % 2.4 % (1.5-5.0); GRAN # 3.01 (1.4-6.5); GRAN % 55.4 % (50.0-68.0); HEMOGLOBIN 9.1 g/dL (12.0-16.0); LYMPH % 36.1 % (22.0-35.0); MEAN CELL VOLUME 65.9 fl (80.0-105.0); MEAN CORPUSCULAR HEMOGLOBIN 19.7 pg (25.0-35.0); MEAN CORPUSCULAR HGB CONC 29.9 g/dl (31.0-37.0); MONO # 0.3 (0.1-0.6); MONO % 5.9 % (1.0-6.0); PLATELET COUNT 199 10^3/uL (120.0-450.0); RBC 4.61 10^6/uL (3.5-6.1); RED CELL DISTRIBUTION WIDTH 23.2 % (11.5-14.5); WHITE BLOOD COUNT 5.4 10^3/uL (4.5-11.0)
[2018-06-23 07:36] LABS: ALB/GLOB RATIO 1.2 (1.1-1.8); ALBUMIN 3.2 g/dL (3.0-4.8); ALT/SGPT 21 U/L (7-56); AST/SGOT 20 U/L (14-36); BLOOD UREA NITROGEN 8 mg/dL (7-21); CALCIUM 8.2 mg/dL (8.4-10.5); GFR NON-AFRICAN AMERICAN > 60
[2018-06-23 07:44] LABS: SICKLE CELL SCREEN Negative (Negative)
[2018-06-23 08:33] VITALS: BP 121/74; PULSE 59; RESP 20; TEMP 97.8
[2018-06-23] MEDS: cefTRIAXone 1 gm 1 GM/100 ML BAG IVPB SCH (09:16)
--- NOTE | 2018-06-23 10:14 | MRI ---
Date of service: 06/22/2018 PROCEDURE: MR LUMBAR SPINE WITHOUT CONTRAST HISTORY: leg weakness COMPARISON: None available. TECHNIQUE: Multiecho multiplanar sequences were performed through the lumbar spine without the use of intravenous contrast. FINDINGS: Normal lumbar lordosis. Vertebral body heights are preserved. Marrow signal unremarkable. Conus medullaris unremarkable at the level of L1 Paraspinal soft tissues are unremarkable. T12-L1: No disc herniation, spinal canal stenosis or neural foraminal narrowing. L1-2: No disc herniation, spinal canal stenosis or neural foraminal narrowing. L2-3: No disc herniation, spinal canal stenosis or neural foraminal narrowing. L3-4: No disc herniation, spinal canal stenosis or neural foraminal narrowing. L4-5: No disc herniation, spinal canal stenosis or neural foraminal narrowing. L5-S1: There is disc degeneration with an asymmetric disc bulge to the left. There is also desiccation of the disc material and loss of disc height. There is no foraminal or central stenosis OTHER FINDINGS: None. IMPRESSION: L5-S1.There is disc degeneration with an asymmetric disc bulge to the left. There is also desiccation of the disc material and loss of disc height. There is no foraminal or central stenosis
--- NOTE | 2018-06-23 13:32 | US ---
Date of service: 06/23/2018 PROCEDURE: HISTORY: abdominal pain with heav COMPARISON: TECHNIQUE: FINDINGS: The uterus measures 12.3 x 4.4 x 5.9 centimeters. The endometrium measures 7 millimeters and contains fluid. There is no free fluid the cul-de-sac. The ovaries have a normal sonographic appearance. IMPRESSION: Small amount of fluid in the endometrial canal.
[2018-06-23] MEDS ORDERED: Lidocaine 2% Inj (20ml) IJ STA (15:10)
[2018-06-23] MEDS ORDERED: Morphine 2 mg/ml ISec IVP STA (15:10)
--- NOTE | 2018-06-23 18:15 | CP.PCM.DIS ---
<Jolanta Diaz - Last Filed: 06/23/18 18:09> Provider - Provider Date of Admission: 06/22/18 11:07 Attending physician: Edy Mac MD Primary care physician: NO PRIMARY CARE PROVIDER Time Spent in preparation of Discharge (in minutes): 45 Diagnosis - Discharge Diagnosis (1) Anemia Status: Acute (2) Generalized muscle weakness Status: Acute (3) UTI (urinary tract infection) Status: Acute Hospital Course - Lab Results Lab Results: Micro Results 06/21/18 22:38 Urine,Clean Catch Urine Culture - Preliminary Gram Positive Cocci 06/21/18 18:45 Blood Blood Culture - Preliminary NO GROWTH AFTER 24 HOURS 06/21/18 18:15 Blood Blood Culture - Preliminary NO GROWTH AFTER 24 HOURS Most Recent Lab Values WBC 5.4 10^3/uL (4.5-11.0) 06/23/18 06:20 RBC 4.61 10^6/uL (3.5-6.1) 06/23/18 06:20 Hgb 9.1 g/dL (12.0-16.0) L 06/23/18 06:20 Hct 30.4 % (36.0-48.0) L 06/23/18 06:20 MCV 65.9 fl (80.0-105.0) L 06/23/18 06:20 MCH 19.7 pg (25.0-35.0) L 06/23/18 06:20 MCHC 29.9 g/dl (31.0-37.0) L 06/23/18 06:20 RDW 23.2 % (11.5-14.5) H 06/23/18 06:20 Plt Count 199 10^3/uL (120.0-450.0) 06/23/18 06:20 MPV fl (7.0-11.0) 06/22/18 06:15 Gran % 55.4 % (50.0-68.0) 06/23/18 06:20 Lymph % (Auto) 36.1 % (22.0-35.0) H 06/23/18 06:20 [place] % (Auto) 5.9 % (1.0-6.0) 06/23/18 06:20 Eos % (Auto) 2.4 % (1.5-5.0) 06/23/18 06:20 Baso % (Auto) 0.2 % (0.0-3.0) 06/23/18 06:20 Gran # 3.01 (1.4-6.5) 06/23/18 06:20 Lymph # (Auto) 2.0 (1.2-3.4) 06/23/18 06:20 [place] # (Auto) 0.3 (0.1-0.6) 06/23/18 06:20 Eos # (Auto) 0.1 (0.0-0.7) 06/23/18 06:20 Baso # (Auto) 0.01 K/mm3 (0.0-2.0) 06/23/18 06:20 Differential Comment See pathology report 06/22/18 06:30 ESR 10 mm/hr (0.0-20.0) 06/21/18 18:15 Retic Count 0.23 % (0.5-1.5) L 06/22/18 06:15 Sickle Cell Screen Negative (Negative) 06/22/18 12:20 Hemoglobinopathy Red Blood Count 4.43 Mill/mcL (3.80-5.10) 06/22/18 12:20 Hemoglobinopathy Hct 28.5 % (35.0-45.0) L 06/22/18 12:20 Hemoglobinopathy Hgb 8.4 g/dL (11.7-15.5) L 06/22/18 12:20 Hemoglobinopathy MCV 64.4 fL (80.0-100.0) L 06/22/18 12:20 Hemoglobinopathy MCH 19.0 pg (27.0-33.0) L 06/22/18 12:20 Hemoglobinopathy RDW 23.5 % (11.0-15.0) H 06/22/18 12:20 Sodium 139 mmol/L (132-148) 06/23/18 06:20 Potassium 3.9 mmol/L (3.6-5.0) 06/23/18 06:20 Chloride 110 mmol/L (98-107) H 06/23/18 06:20 Carbon Dioxide 24 mmol/L (21-33) 06/23/18 06:20 Anion Gap 9 (10-20) L 06/23/18 06:20 BUN 8 mg/dL (7-21) 06/23/18 06:20 Creatinine 0.6 mg/dl (0.7-1.2) L 06/23/18 06:20 Est GFR ( Amer) > 60 06/23/18 06:20 Est GFR (Non-Af Amer) > 60 06/23/18 06:20 POC Glucose (mg/dL) 92 mg/dL (65-110) 06/21/18 17:32 Random Glucose 95 mg/dL (70-110) 06/23/18 06:20 Uric Acid 2.6 mg/dL (2.5-6.2) 06/22/18 12:20 Calcium 8.2 mg/dL (8.4-10.5) L 06/23/18 06:20 Phosphorus 4.7 mg/dL (2.5-4.5) H 06/22/18 06:15 Magnesium 2.1 mg/dL (1.7-2.2) 06/22/18 06:15 Iron 20 ug/dL (45-180) L 06/22/18 06:15 TIBC 350 ug/dL (265-497) 06/22/18 06:15 % Saturation 6 % (20-55) L 06/22/18 06:15 Ferritin 5.0 ng/mL 06/22/18 06:15 Total Bilirubin 0.1 mg/dL (0.2-1.3) L 06/23/18 06:20 AST 20 U/L (14-36) 06/23/18 06:20 ALT 21 U/L (7-56) 06/23/18 06:20 Alkaline Phosphatase 32 U/L (38-126) L 06/23/18 06:20 Total Creatine Kinase 27 U/L (35-230) L 06/22/18 09:30 Troponin I < 0.01 ng/mL 06/21/18 18:15 NT-Pro-B Natriuret Pep 98.8 pg/mL (0-450) 06/21/18 18:15 Total Protein 5.9 g/dL (5.8-8.3) 06/23/18 06:20 Albumin 3.2 g/dL (3.0-4.8) 06/23/18 06:20 Globulin 2.7 gm/dL 06/23/18 06:20 Albumin/Globulin Ratio 1.2 (1.1-1.8) 06/23/18 06:20 Vitamin B12 250 pg/mL (239-931) 06/22/18 06:15 Folate 6.7 ng/mL 06/22/18 06:15 TSH 3rd Generation 1.21 mIU/mL (0.46-4.68) 06/21/18 18:15 Urine Color Yellow (YELLOW) 06/21/18 19:23 Urine Appearance Sl cloudy (CLEAR) 06/21/18 19:23 Urine pH 6.0 (4.7-8.0) 06/21/18 19:23 Ur Specific [place] >= 1.030 (1.005-1.035) 06/21/18 19:23 Urine Protein 30 mg/dL (<30 mg/dL) H 06/21/18 19:23 Urine Glucose (UA) Negative mg/dL (NEGATIVE) 06/21/18 19:23 Urine Ketones Negative mg/dL (NEGATIVE) 06/21/18 19:23 Urine Blood Large (NEGATIVE) H 06/21/18 19:23 Urine Nitrate Negative (NEGATIVE) 06/21/18 19:23 Urine Bilirubin Negative (NEGATIVE) 06/21/18 19:23 Urine Urobilinogen 0.2 E.U./dL (<1 E.U./dL) 06/21/18 19:23 Ur Leukocyte Esterase Negative Giovanni/uL (NEGATIVE) 06/21/18 19:23 Urine RBC 20 - 25 /hpf (0-2) 06/21/18 19:23 Urine WBC 10 - 15 /hpf (0-6) 06/21/18 19:23 Ur Epithelial Cells 4 - 5 /hpf (0-5) 06/21/18 19:23 Urine Bacteria Many (NEG) 06/21/18 19:23 Influenza Typ A,B (EIA) Negative for flu a/b (NEGATIVE) 06/21/18 18:15 Blood Type O POSITIVE 06/22/18 12:20 Blood Type Confirm O POSITIVE 06/22/18 12:50 Antibody Screen Negative 06/22/18 12:20 Crossmatch See Detail 06/22/18 12:20 BBK History Checked No verified bt 06/22/18 12:20 - Hospital Course Hospital Course: Upon admission Ms. Holbrook is a 37 year old female with a past medical history of hypertension and questionable lupus who presented to the [facility] Emergency Department (ED) on 06/21 with complaints of generalized pain, difficulty walking, and migraine headache. Patient stated that she was recently admitted to [facility] for similar complaints, but left AMA. On ROS, patient denied chest pain, shortness of breath, palpitations, abdominal pain, nausea, vomiting, diarrhea, dizziness, blurry vision, and rash. Patient admitted to constipation. Hospital course Head CT was ordered and was unremarkable. Neurology and physical therapy were consulted. Tylenol and motrin were started for pain control. An MRI of the lumbar spine was ordered per neurology's request and revealed L5-S1 disc degeneration with an asymmetric disc bulge to the left, desiccation of disc material and loss of disc height, and no foraminal or central stenosis. Labs revealed a significant anemia. Iron sucrose was started and patient was transfused one unit of blood. Patient complained of abdominal pain, and a pelvic ultrasound was ordered. The ultrasound revealed a small amount of fluid in the endometrial canal. Urine cultures were ordered and grew gram positive cocci, and rocephin was started. The pt responded well the the PRBC transfusion and stated that she began to feel better symptomatically. She states that she is no longer weak and is able to walk without assistance. PT saw the pt and stated that she could safely be discharged home with family assistance. Pt states that she agrees to being discharged home and has family support which can help her. For a complete record of hospital course, please refer to medical record. Upon discharge Patient is to follow-up with her primary care provider, Dr. Bradley, within 3-4 days or the [facility] who will reach out to you with an appointment time. Patient is to follow up with Dr. Maldonado, neurologist, within 2- 3 days of discharge. Patient is to take the following medications: Miralax and iron supplement. Pt is encouraged to return to the ED if the symptoms worsen or if new symptoms begin. These instructions were explained to the patient, and the patient understood and is in agreement with the plan. Discharge Exam - Head Exam Head Exam: ATRAUMATIC, NORMAL INSPECTION, NORMOCEPHALIC - Eye Exam Eye Exam: EOMI, Normal appearance, PERRL - Respiratory Exam Respiratory Exam: NORMAL BREATHING PATTERN, UNREMARKABLE. absent: Accessory Muscle Use, Decreased Breath Sounds, Rales, Rhonchi, Wheezes, Respiratory Distress - Cardiovascular Exam Cardiovascular Exam: RRR, +S1, +S2. absent: Gallop, Rubs - GI/Abdominal Exam GI & Abdominal Exam: Normal Bowel Sounds, Soft, Unremarkable. absent: Rebound, Rigid, Tenderness - Extremities Exam Extremities exam: normal capillary refill, normal inspection, pedal pulses present - Back Exam Back exam: NORMAL INSPECTION. absent: CVA tenderness (L), CVA tenderness (R) - Neurological Exam Neurological exam: Alert, Oriented x3 - Psychiatric Exam Psychiatric exam: Normal Affect, Normal Mood - Skin Skin Exam: Cyanosis, Dry, Intact, Normal Color Discharge Plan - Discharge Medications Prescriptions: Cyclobenzaprine [Flexeril] 5 mg PO TID 5 Days #15 tab Ferrous Sulfate 325 mg PO DAILY 14 Days #14 tablet Polyethylene Glycol 3350 [Miralax] 17 gm PO BID 14 Days #28 powd.pack - Follow Up Plan Condition: GOOD Disposition: HOME/ ROUTINE Instructions: Normocytic Normochromic Anemia (DC), Urinary Tract Infection in Women (DC), Weakness (GEN) Additional Instructions: Take Flexeril for back pain. Take Motrin or Tylenol as needed for pain. Take iron tablets daily. Also take miralax to avoid constipation. Follow up with Neurology Dr Maldonado outpatient in 1 week. Consider a possible EMG if your weakness persists. Follow up with [facility] clinic or PMD in 1 week. [facility] clinic phone # is [phone]. They will reaching out to you regarding an appointment soon. Return to ER if any of your symptoms return or worsen. Referrals: PCP,NO [Primary Care Provider] - Rosie Raines MD [Medical Doctor] - <Edy Mac - Last Filed: 06/23/18 18:54> Provider - Provider Date of Admission: 06/22/18 11:07 Attending physician: Edy Mac MD Primary care physician: NO PRIMARY CARE PROVIDER Hospital Course - Lab Results Lab Results: Micro Results 06/21/18 18:15 Blood Blood Culture - Preliminary NO GROWTH AFTER 48 HOURS 06/21/18 22:38 Urine,Clean Catch Urine Culture - Preliminary Gram Positive Cocci 06/21/18 18:45 Blood Blood Culture - Preliminary NO GROWTH AFTER 24 HOURS Most Recent Lab Values WBC 5.4 10^3/uL (4.5-11.0) 06/23/18 06:20 RBC 4.61 10^6/uL (3.5-6.1) 06/23/18 06:20 Hgb 9.1 g/dL (12.0-16.0) L 06/23/18 06:20 Hct 30.4 % (36.0-48.0) L 06/23/18 06:20 MCV 65.9 fl (80.0-105.0) L 06/23/18 06:20 MCH 19.7 pg (25.0-35.0) L 06/23/18 06:20 MCHC 29.9 g/dl (31.0-37.0) L 06/23/18 06:20 RDW 23.2 % (11.5-14.5) H 06/23/18 06:20 Plt Count 199 10^3/uL (120.0-450.0) 06/23/18 06:20 MPV fl (7.0-11.0) 06/22/18 06:15 Gran % 55.4 % (50.0-68.0) 06/23/18 06:20 Lymph % (Auto) 36.1 % (22.0-35.0) H 06/23/18 06:20 [place] % (Auto) 5.9 % (1.0-6.0) 06/23/18 06:20 Eos % (Auto) 2.4 % (1.5-5.0) 06/23/18 06:20 Baso % (Auto) 0.2 % (0.0-3.0) 06/23/18 06:20 Gran # 3.01 (1.4-6.5) 06/23/18 06:20 Lymph # (Auto) 2.0 (1.2-3.4) 06/23/18 06:20 [place] # (Auto) 0.3 (0.1-0.6) 06/23/18 06:20 Eos # (Auto) 0.1 (0.0-0.7) 06/23/18 06:20 Baso # (Auto) 0.01 K/mm3 (0.0-2.0) 06/23/18 06:20 Differential Comment See pathology report 06/22/18 06:30 ESR 10 mm/hr (0.0-20.0) 06/21/18 18:15 Retic Count 0.23 % (0.5-1.5) L 06/22/18 06:15 Sickle Cell Screen Negative (Negative) 06/22/18 12:20 Hemoglobinopathy Red Blood Count 4.43 Mill/mcL (3.80-5.10) 06/22/18 12:20 Hemoglobinopathy Hct 28.5 % (35.0-45.0) L 06/22/18 12:20 Hemoglobinopathy Hgb 8.4 g/dL (11.7-15.5) L 06/22/18 12:20 Hemoglobinopathy MCV 64.4 fL (80.0-100.0) L 06/22/18 12:20 Hemoglobinopathy MCH 19.0 pg (27.0-33.0) L 06/22/18 12:20 Hemoglobinopathy RDW 23.5 % (11.0-15.0) H 06/22/18 12:20 Sodium 139 mmol/L (132-148) 06/23/18 06:20 Potassium 3.9 mmol/L (3.6-5.0) 06/23/18 06:20 Chloride 110 mmol/L (98-107) H 06/23/18 06:20 Carbon Dioxide 24 mmol/L (21-33) 06/23/18 06:20 Anion Gap 9 (10-20) L 06/23/18 06:20 BUN 8 mg/dL (7-21) 06/23/18 06:20 Creatinine 0.6 mg/dl (0.7-1.2) L 06/23/18 06:20 Est GFR ( Amer) > 60 06/23/18 06:20 Est GFR (Non-Af Amer) > 60 06/23/18 06:20 POC Glucose (mg/dL) 92 mg/dL (65-110) 06/21/18 17:32 Random Glucose 95 mg/dL (70-110) 06/23/18 06:20 Uric Acid 2.6 mg/dL (2.5-6.2) 06/22/18 12:20 Calcium 8.2 mg/dL (8.4-10.5) L 06/23/18 06:20 Phosphorus 4.7 mg/dL (2.5-4.5) H 06/22/18 06:15 Magnesium 2.1 mg/dL (1.7-2.2) 06/22/18 06:15 Iron 20 ug/dL (45-180) L 06/22/18 06:15 TIBC 350 ug/dL (265-497) 06/22/18 06:15 % Saturation 6 % (20-55) L 06/22/18 06:15 Ferritin 5.0 ng/mL 06/22/18 06:15 Total Bilirubin 0.1 mg/dL (0.2-1.3) L 06/23/18 06:20 AST 20 U/L (14-36) 06/23/18 06:20 ALT 21 U/L (7-56) 06/23/18 06:20 Alkaline Phosphatase 32 U/L (38-126) L 06/23/18 06:20 Total Creatine Kinase 27 U/L (35-230) L 06/22/18 09:30 Troponin I < 0.01 ng/mL 06/21/18 18:15 NT-Pro-B Natriuret Pep 98.8 pg/mL (0-450) 06/21/18 18:15 Total Protein 5.9 g/dL (5.8-8.3) 06/23/18 06:20 Albumin 3.2 g/dL (3.0-4.8) 06/23/18 06:20 Globulin 2.7 gm/dL 06/23/18 06:20 Albumin/Globulin Ratio 1.2 (1.1-1.8) 06/23/18 06:20 Vitamin B12 250 pg/mL (239-931) 06/22/18 06:15 Folate 6.7 ng/mL 06/22/18 06:15 TSH 3rd Generation 1.21 mIU/mL (0.46-4.68) 06/21/18 18:15 Urine Color Yellow (YELLOW) 06/21/18 19:23 Urine Appearance Sl cloudy (CLEAR) 06/21/18 19:23 Urine pH 6.0 (4.7-8.0) 06/21/18 19:23 Ur Specific [place] >= 1.030 (1.005-1.035) 06/21/18 19:23 Urine Protein 30 mg/dL (<30 mg/dL) H 06/21/18 19:23 Urine Glucose (UA) Negative mg/dL (NEGATIVE) 06/21/18 19:23 Urine Ketones Negative mg/dL (NEGATIVE) 06/21/18 19:23 Urine Blood Large (NEGATIVE) H 06/21/18 19:23 Urine Nitrate Negative (NEGATIVE) 06/21/18 19:23 Urine Bilirubin Negative (NEGATIVE) 06/21/18 19:23 Urine Urobilinogen 0.2 E.U./dL (<1 E.U./dL) 06/21/18 19:23 Ur Leukocyte Esterase Negative Giovanni/uL (NEGATIVE) 06/21/18 19:23 Urine RBC 20 - 25 /hpf (0-2) 06/21/18 19:23 Urine WBC 10 - 15 /hpf (0-6) 06/21/18 19:23 Ur Epithelial Cells 4 - 5 /hpf (0-5) 06/21/18 19:23 Urine Bacteria Many (NEG) 06/21/18 19:23 Influenza Typ A,B (EIA) Negative for flu a/b (NEGATIVE) 06/21/18 18:15 Blood Type O POSITIVE 06/22/18 12:20 Blood Type Confirm O POSITIVE 06/22/18 12:50 Antibody Screen Negative 06/22/18 12:20 Crossmatch See Detail 06/22/18 12:20 BBK History Checked No verified bt 06/22/18 12:20 Attending/Attestation - Attestation I have personally seen and examined this patient.: Yes I have fully participated in the care of the patient.: Yes I have reviewed all pertinent clinical information, including history, physical exam and plan: Yes Notes (Text): 06/23/18 18:50 Attending note; Patient seen and examined with resident. Patient is alert and awake. Sitting in the chair. Complaining of muscle spasm in the back. Able to move all extremities. Still complaining of mild generalized weakness. Denies any fevers, chills. Denies any urinary symptoms. Tolerating diet well. Status post 1 unit PRBC transfusion yesterday. Patient is a 37 year old female with a past medical history of hypertension and questionable lupus who presented to the [facility] Emergency Department (ED) on 06/21 with complaints of generalized pain, difficulty walking, and migraine headache. Patient history is unreliable. 1. Iron deficiency anemia Anemia; patient had symptomatic anemia yesterday .status post 1 unit PRBC transfusion. Continue IV iron. Mostly secondary to [employer] blood loss. Pelvic ultrasound is negative. Advised to follow-up with [employer] as outpatient. 2. Questionable history of lupus; MARQUES pending. 3. Back pain; lumbosacral MRI is negative for any central or foraminal stenosis. L5-S1 disc degeneration with an asymmetric disc bulge to the left. PT evaluation appreciated. Outpatient endurance training recommended. Patient will be discharged home with iron and MiraLAX. Advised to follow-up with PMD in [place].
[2018-06-24 11:47] LABS: HEMOGLOBIN A 97.1 Percent (>96.0); HEMOGLOBIN A2 1.9 Percent (1.8-3.5)
== END 2018-06-23 18:55 | disposition home or self-care (01) | DRG 395 ==
LOC: ED 17:18 → ERH 20:51 → 5RNO 23:12 → INTOOBSV 06-22 11:07 → OBSVTOIN 06-22 11:07
PROVIDERS: ADMIT Internal Medicine; ATTEND Internal Medicine
PROC: 30233N1 Transfusion of Nonautologous Red Blood Cells into Peripheral Vein, Percutaneous Approach (ICD-10-PCS; principal; 2018-06-22)
DX: D50.9 Iron deficiency anemia, unspecified (principal); N39.0 Urinary tract infection, site not specified; M32.9 Systemic lupus erythematosus, unspecified; E87.6 Hypokalemia; E83.51 Hypocalcemia; I10 Essential (primary) hypertension; K59.00 Constipation, unspecified; M51.37 Other intervertebral disc degeneration, lumbosacral region; N39.41 Urge incontinence; F17.210 Nicotine dependence, cigarettes, uncomplicated; R40.2412 Glasgow coma scale score 13-15, at arrival to emergency department